=== PATIENT | male | born 1950 | race Caucasian/White ===

== ENCOUNTER 2021-01-27 14:59 | Emergency (ER) | payer MEDICARE, OTHER ==
[2021-01-27 15:11] VITALS: BP 151/89
[2021-01-27] MEDS ORDERED: BACITRACIN ZINC OINT 1 PACKET TOP STA (15:28)
[2021-01-27] MEDS ORDERED: BUFFERED LIDOCAINE 10 ML SYRINGE SUBQ STA (15:28)
[2021-01-27] MEDS ORDERED: TETANUS/DIPHTHERIA/PERTUSSIS 0.5 ML SYRINGE IM ONE (15:28)
--- NOTE | 2021-01-27 15:30 | ED Physician Documentation ---
History of Present Illness - Stated complaint Stated Complaint: L HAND INJ - Chief complaint Chief Complaint: Laceration - Additonal information Additional information: 70-year-old male presents emergency department for evaluation of a left ring finger laceration sustained when cutting a watermelon at home this afternoon. Unknown last tetanus. Patient is right-hand dominant. Review of Systems Constitutional: reports: Reviewed and negative Ears: reports: Reviewed and negative Throat: reports: Reviewed and negative Cardiac: reports: Reviewed and negative Respiratory: reports: Reviewed and negative GI: reports: Reviewed and negative Skin: reports: Laceration (s) Musculoskeletal: reports: Reviewed and negative Neurologic: reports: Reviewed and negative PD PAST MEDICAL HISTORY - Past Medical History Past Medical History: Yes Cardiovascular: Hypertension - Allergies Allergies/Adverse Reactions: Allergies Allergy/AdvReac Type Severity Reaction Status Date / Time No Known Drug Allergies Allergy Verified 01/27/21 15:08 - Social History Does the pt smoke?: No Smoking Status: Never smoker Does the pt drink ETOH?: No Does the pt have substance abuse?: No - Immunizations Immunizations: TDAP >10years/unknown - POLST Patient has POLST: No PD ED PE EXPANDED - General General: Alert, No acute distress - Extremities Extremities: Left finger(s) (3 cm U-shaped laceration radial side left ring finger between MCP and DIP joint. Normal flexion extension at all joints against resistance. Distal sensation preserved. Brisk cap refill of the digit. 2+ radial pulse) Results - Vitals Vitals: Vital Signs - 24 hr 01/27/21 15:08 Temperature 36.5 C Heart Rate 66 Respiratory 16 Rate Blood Pressure 151/89 H O2 Saturation 96 Oxygen O2 Source Room air Procedures - Laceration (location) left ring finger Length in cm: 3.5 Wound type: Curved, Irregular, Flap, Into subcut fat, Into muscle, Clean Neurovascular status: Sensory intact, Motor intact Tendon involvement: Tendon intact Anesthesia: Lidocaine 1% Wound preparation: Chlorhexadine, Wound explored, To the base Skin layer closure: Running, Size #-0 - enter number (4), Sutures - enter # (6) Other: Patient tolerated well, No complications, Neurovascular intact, Tetanus UTD PD MEDICAL DECISION MAKING - ED course Complexity details: reviewed results, re-evaluated patient, d/w patient ED course: 70-year-old male presents emergency department for evaluation of a left ring finger laceration sustained when cutting a watermelon. He had a U-shaped flap on the radial side of the index finger between the MCP and DIP joint. He had preserved sensation distally and was able to flex and extend at all joints against resistance. However there was a fair amount of tissue loss with this laceration. The wound was closed primarily using sutures. Will defer antibiotics given the relatively clean appearance of this wound tetanus was updated. Routine wound care emergent return precautions were discussed. Departure - Departure Disposition: 01 Home, Self Care Clinical Impression: Finger laceration Qualifiers: Encounter type: initial encounter Finger: ring finger Damage to nail status: without damage Foreign body presence: without foreign body Laterality: left Qualified Code(s): S61.215A - Laceration without foreign body of left ring finger without damage to nail, initial encounter Condition: Stable Record reviewed to determine appropriate education?: Yes Instructions: ED Laceration Hand Comments: Your suture should be removed in 8-9 days. In 24 hours you may remove the dressing wash gently with warm soap and water, apply any antibiotic ointment and a simple bandage. Your tetanus is up-to-date today and is good for 7-10 years. Please attempt to keep your wound clean and dry. Do not submerge it in dirty dishwater or bath water. Return to the emergency department if you have any concerns of infection such as redness, fevers milky drainage increased pain.
== END 2021-01-27 16:30 | disposition home or self-care (01) ==
LOC: ED 14:59
DX: S61.215A Laceration without foreign body of left ring finger without damage to nail, initial encounter (principal); W26.0XXA Contact with knife, initial encounter; Y93.G1 Activity, food preparation and clean up; Y92.009 Unspecified place in unspecified non-institutional (private) residence as the place of occurrence of the external cause
CPT/HCPCS: 12052; 90715; 99282; 99283; A9270